=== PATIENT | male | born 1960 | race Two or more races ===

== ENCOUNTER 2025-04-17 16:30 | Emergency (ER) | payer MEDICARE, MEDICAID, SELFPAY ==
[2025-04-17 16:34] VITALS: BP 138/79; PULSE 84; RESP 20; TEMP 36.6; O2SAT 95
--- NOTE | 2025-04-17 16:57 | EDNOTE_ITS ---
ED Medical Clearance RME/HPI General Stated complaint: MEDICAL CLERANCE Time Seen by Provider: 04/17/25 16:37 Arrival date/time: 04/17/25 16:30 Limitations: no limitations RME / HPI RME / HPI Narrative: 64 year old male presents to the ED BIB [facility] for medical clearance for incarceration today. Per officer, patient is heavily intoxicated and requires clearance prior to booking. Officer denies forceful arrest. No head injury or fall. In the ED, patient has no complaints and admits to drinking alcohol. Amount of alcohol unknown. Related Information Home Medications ?Medication ?Instructions ?Recorded ?Confirmed clonazepam 1 mg tablet 1 mg PO HS 12/04/21 12/04/21 clotrimazole 1 % topical cream 1 applic topical BID 12/04/21 dicyclomine 20 mg tablet 20 mg PO BID 12/04/21 hydrocodone 5 mg-acetaminophen 325 1 tab PO Q6H PRN Pa in 12/04/21 12/04/21 mg tablet Held on 12/07/21. Instructions: Resume on 12/08/21. Resume Tuesday12/08/2021 methotrexate sodium 2.5 mg tablet 2.5 mg PO QWEEK 04/1912/04/21 pravastatin 20 mg tablet 20 mg PO HS 12/04/21 2 Previous Rx's ?Medication ?Instructions ?Recorded docusate sodium 100 mg capsule 100 mg PO BID #30 caps 01/15/20 (Colace) azathioprine 50 mg tablet (Imuran) 50 mg PO BID #60 ta bs 12/07/21 prednisone 5 mg tablet 5 mg PO BID #180 tabs sulfasalazine 500 mg tablet 1 g (2 x 500 mg) PO BID #1 20 tabs 12/07/21 Allergies Allergy/AdvReac Type Severity Reaction Status Date / Time No Known Allergies Allergy Verified 12/07/21 12:37 Review of Systems Review of Systems Systems Reviewed: All systems reviewed, normal except as documented Past Medical History Past Medical History CARDIAC: Positive Hypercholesterolemia (po meds) GASTROINTESTINAL: Positive Gastrointestinal Disorders (Gassy, constipation), Gall Bladder Disease (lap nilsa) and Gastroesophageal Reflux Disease MUSCULOSKELETAL: Positive Musculoskeletal Disorders and Arthritis (Generalized) ENT: Positive Cataracts Family History FAMILY HISTORY: Positive Family Cancer (Mother-Tumor stomach) Surgical History SURGICAL: Positive Tonsillectomy and Bowel Surgery Social History SMOKING STATUS: Never smoker ED Exam General Limitations: Present no limitations General appearance: Present alert Head Head exam: Present atraumatic, normocephalic and normal inspection Eye Eye exam: Present normal appearance, PERRL and EOMI ENT ENT exam: Present normal exam, normal oropharynx and mucous membranes moist Neck Neck exam: Present normal inspection, full ROM and trachea midline Chest Chest inspection: Present normal inspection and symmetric chest wall rise Respiratory Respiratory exam: Present normal lung sounds bilaterally Cardiovascular Cardiovascular exam: Present regular rate, normal rhythm and normal heart sounds Abdominal Exam Abdominal exam: Present soft; Absent distention, tenderness, guarding, rebound or rigidity Extremities Exam Extremities exam: Present normal inspection and full ROM Back Exam Back exam: Present normal inspection and full ROM Neurological Exam Neurological exam: Present alert, oriented X3 (GCS of 15 ), CN II-XII intact, normal gait and other (Moves all extremities ambulates without any difficulty); Absent motor sensory deficit Psychiatric Psychiatric exam: Present normal affect and normal mood Skin Skin exam: Present warm, dry, intact and normal color Course Quality Measures none Orders Category Date Time Status CBC Stat Lab 04/17/25 17:06 Completed Vital Signs Vital signs: Vital Signs Temperature 97.8 F 04/17/25 16:34 Pulse Rate 84 04/17/25 16:34 Respiratory Rate 20 04/17/25 16:34 Blood Pressure 138/79 H 04/17/25 16:34 Pulse Oximetry (%) 95 04/17/25 16:34 Oxygen Delivery Method Room Air 04/17/25 16:34 Pulse ox is 95% on room air which is adequate. Medical Clearance MDM Narrative MDM Narrative:: Allison Banegas am scribing for and in the presence of Dr. Lu. Patient is a 65-year-old male is in the emergency room with concerns for alcohol intoxication, requiring medical clearance prior to incarceration. But vital signs and exam as listed. Patient GCS 15, no focal neurodeficits, no signs of trauma, patient has no complaints. Ordered labs for medication for symptom relief. Patient not in active withdrawal. CIWA not elevated. Patient able to ambulate without any difficulties. Has not been vomiting. No chest pain no abdominal pain no difficulty breathing. Given patient exam patient is medically cleared for incarceration. Patient data External records reviewed:: [facility] previous records (I reviewed ED Visit on 07/19/2023 ) Clinical information provided by:: patient and law enforcement Social determinants that could affect healthcare access:: alcohol use Patient has the following chronic illnesses:: HLD? How is presenting disease/condition affected by chronic disease/condition?: uneffected by Evaluation data The following diagnostics were reviewed and interpreted by me:: lab results Lab and/or radiology exams considered but not ordered:: None Interpretation Summary: CBC unremarkable Medications / Prescriptions Medications or Prescriptions considered but not ordered:: None Medication administrations:: None Consultations Consultation(s) initiated? (list below): No Diagnosis Medical Clearance Differential Diagnosis: other (Alcohol intoxication, medical clearance for incarceration ) Most likely diagnosis given after review of the tests above:: Alcohol abuse Admission Indicated Admission indicated?: not indicated Admission Request Was there a request for admission?: No Disposition Plan Disposition Plan: Discharge Discharge Attestation Discharge Attestation: The patient and all family members were given an opportunity to ask questions and understood the discharge instructions. Discharge instructions specifically effects, indications for sooner follow up or return to the emergency department, and the expected course of current diagnosis. Patient condition: Stable Discharge Plan Plan Patient Disposition: Residential/Court/Law Prescriptions/Referrals Prescriptions/Med Rec: No Action hydrocodone-acetaminophen 5-325 mg tablet 1 tab PO Q6H PRN (Reason: Pain) Patient Comments: TAKE 1 TO 2 TABLET BY MOUTH EVERY 6 HOURS NEEDED FOR ACUTE PAIN FOR 30 DAYS clonazepam 1 mg tablet 1 mg PO HS Patient Comments: TAKE 1 TABLET BY MOUTH EVERY DAY methotrexate sodium 2.5 mg tablet 2.5 mg PO QWEEK Patient Comments: TAKE 5 TABLET BY MOUTH EVERY WEEK FOR 90 DAYS dicyclomine 20 mg tablet 20 mg PO BID Patient Comments: TAKE 1 TABLET BY MOUTH TWICE A DAY pravastatin 20 mg tablet 20 mg PO HS Patient Comments: URIEL MORENO TABLETA POR V A ORAL TODOS LOS D AL ACOSTARSE clotrimazole 1 % cream 1 applic TOPICAL BID Patient Comments: APPLY TO AFFECTED AREA TWICE A DAY FOR 28 DAYS sulfasalazine 500 mg Tablet 1 g PO BID Qty: 120 1RF Rx Instructions: 2 tablets twice daily with meals/snack azathioprine [Imuran] 50 mg Tablet 50 mg PO BID Qty: 60 1RF Rx Instructions: Take 1 table by mouth twice daily prednisone 5 mg Tablet 5 mg PO BID Qty: 180 0RF Taper: Prednisone Taper 20 mg DAILY for 2 Days and 0 Hour 10 mg DAILY for 2 Days and 0 Hour 5 mg DAILY for 7 Days and 0 Hour Rx Instructions: Take 3 tablets by mouth twice daily docusate sodium [Colace] 100 mg capsule 100 mg PO BID Qty: 30 0RF Referrals: No Primary/Family,Physician [Primary Care Provider] - In 1 week Problem List Clinical Impression: Alcohol abuse Patient/Caregiver Discharge Instructions Education Materials: Addiction: Getting Help Print Language: Georgian
[2025-04-17 17:25] LABS: Basophils # (Auto) 0.0 Thou/mm3 (0.0-0.2); Basophils % (Auto) 0 % (0-2.5); Eosinophils # (Auto) 0.1 Thou/mm3 (0.0-0.5); Eosinophils % (Auto) 1 % (0-10); Hematocrit 38.4 % (41.0-53.0); Hemoglobin 12.6 g/dL (13.5-16.0); Immature Granulocytes Auto 0.01 Thou/mm3 (0.00-0.00); Lymphocytes # (Auto) 4.5 Thou/mm3 (1.0-4.8); Lymphocytes % (Auto) 64 % (10-50); Mean Corpuscular HGB Conc 32.8 g/dl (31.0-37.0); Mean Corpuscular Hemoglobin 26.7 pg (25.0-35.0); Mean Corpuscular Volume 81 fL (80-100); Monocytes # (Auto) 0.4 Thou/mm3 (0.0-0.8); Monocytes % (Auto) 5 % (0-12); Neutrophils # (Auto) 2.2 Thou/mm3 (1.8-7.7); Neutrophils % (Auto) 30 % (37-80); Nucleated Red Blood Cell # 0.00 Thou/mm3 (0.00-0.00); Nucleated Red Blood Cell % 0 /100 WBC (0); Platelet Count 309 Thou/mm3 (140-440); RDW Standard Deviation 41.1 fL (35.1-43.9); Red Blood Count 4.72 Miln/mm3 (4.50-5.90); White Blood Count 7.1 Thou/mm3 (3.8-10.6)
== END 2025-04-17 18:14 ==
PROVIDERS: Emergency Provider Emergency Medicine
DX: Z02.89 Encounter for other administrative examinations (principal); F10.129 Alcohol abuse with intoxication, unspecified
CPT/HCPCS: 36415; 85025; 99282

== ENCOUNTER 2025-05-27 14:36 | Inpatient (IN) | payer MEDICARE, MEDICAID, SELFPAY ==
[2025-05-27 14:45] VITALS: BP 135/70; PULSE 110; RESP 20; TEMP 38.3; O2SAT 96
--- NOTE | 2025-05-27 14:48 | XR_ITS ---
Examination: PA lateral chest 2 views TECHNIQUE: Upright PA lateral chest 2 views Date and time: May 27, 2025, 1517 hours INDICATIONS: Coughing fever beginning 2 days ago. FINDINGS: Normal heart size. Moderate hyperexpansion. No pneumonia or pulmonary edema Moderate thoracic spondylosis IMPRESSION: Moderate hyperexpansion No pneumonia or pulmonary edema
--- NOTE | 2025-05-27 14:48 | PD.EDRME ---
Rapid Medical Screening Exam RME Arrival date/time: 05/27/25 14:36 65-year-old male with a history of alcohol abuse, GERD presents to the emergency room with a chief complaint of generalized weakness x 8 days. Patient states he has been drinking alcohol for the last 8 days and is feeling ill. I have greeted and performed a focused initial assessment of this patient. A comprehensive ED assessment and evaluation of the patient, analysis of all test results, and completion of the medical decision making process will be conducted by additional ED providers. Chief Complaint: General Adult/Misc Complain Time Seen by Provider: 05/27/25 14:45 Vital signs: Vital Signs Temperature 101.0 F H 05/27/25 14:45 Pulse Rate 110 H 05/27/25 14:45 Respiratory Rate 20 05/27/25 14:45 Blood Pressure 135/70 H 05/27/25 14:45 Pulse Oximetry (%) 96 05/27/25 14:45 Oxygen Delivery Method Room Air 05/27/25 14:45 Vital signs reviewed by provider: Yes
--- NOTE | 2025-05-27 15:13 | PD.EDADULT ---
ED General RME/HPI General Chief complaint: General Adult/Misc Complain Stated complaint: DRINKING X 8 DAYS, FEELS SHAKY Time Seen by Provider: 05/27/25 14:45 Arrival date/time: 05/27/25 14:36 RME / HPI RME / HPI narrative: 05/27/25 14:36 65-year-old male with a history of alcohol abuse, GERD presents to the emergency room with a chief complaint of generalized weakness x 8 days. Patient states he has been drinking alcohol for the last 8 days and is feeling ill. I have greeted and performed a focused initial assessment of this patient. A comprehensive ED assessment and evaluation of the patient, analysis of all test results, and completion of the medical decision making process will be conducted by additional ED providers. DR. ALCOCER MAIN ED EVALUATION 65 year old male presents to the ED for evaluation of fevers beginning this morning. Reports yesterday evening he took a shower with cold water and shortly after felt chills. Denies any sick contacts. Per son, the patient had been drinking daily for 8 days and prior to that had been sober for several months. Patient states in the last 8 days he at times drinks up to ten 32oz beers and today admits to only drinking two 32oz beers. Denies sick contacts, sore throat, chest pain, cough, shortness of breath, nausea, vomiting, diarrhea, abdominal pain, urinary symptoms. Related Data Home Medications ?Medication ?Instructions ?Recorded ?Confirmed clonazepam 1 mg tablet 1 mg PO HS 12/04/21 12/04/21 clotrimazole 1 % topical cream 1 applic topical BID 12/04/21 12/04/21 dicyclomine 20 mg tablet 20 mg PO BID 12/04/21 12/04/21 hydrocodone 5 mg-acetaminophen 325 1 tab PO Q6H PRN Pain 12/04/21 12/04/21 mg tablet Held on 12/07/21. Instructions: Resume on 12/08/21. Resume Tuesday12/08/2021 methotrexate sodium 2.5 mg tablet 2.5 mg PO QWEEK 12/04/21 12/04/21 pravastatin 20 mg tablet 20 mg PO HS 12/04/21 12/04/21 Previous Rx's ?Medication ?Instructions ?Recorded docusate sodium 100 mg capsule 100 mg PO BID #30 caps 01/15/20 (Colace) azathioprine 50 mg tablet (Imuran) 50 mg PO BID #60 tabs 12/07/21 prednisone 5 mg tablet 5 mg PO BID #180 tabs 12/07/21 sulfasalazine 500 mg tablet 1 g (2 x 500 mg) PO BID #120 tabs 12/07/21 Allergies Allergy/AdvReac Type Severity Reaction Status Date / Time No Known Allergies Allergy Verified 05/27/25 14:39 Review of Systems Review of Systems Systems Reviewed: All systems reviewed, normal except as documented Past Medical History Past Medical History CARDIAC: Positive Hypercholesterolemia GASTROINTESTINAL: Positive Gastrointestinal Disorders, Gall Bladder Disease and Gastroesophageal Reflux Disease MUSCULOSKELETAL: Positive Musculoskeletal Disorders and Arthritis ENT: Positive Cataracts Family History FAMILY HISTORY: Positive Family Cancer Surgical History SURGICAL: Positive Tonsillectomy and Bowel Surgery Social History SMOKING STATUS: Never smoker ED Exam Narrative Physical exam: Constitutional: Awake, alert, nontoxic, no acute distress, obese HEENT: NC, AT, EOMI Neck: Supple CV: Mildly tachycardic, no m/r/g Lungs: CTAB, no w/r/r, no respiratory distress. Abd: Soft, NT, NT, no HSM noted to palpation Extremities: No deformities, no edema noted Neuro: AAOx3, CN 2-12 GIBL, no acute neuro deficit noted. Skin: Warm, dry, intact Course Course Course Narrative: 1630h: I reviewed labs, lactate was 3.4 and WBC was 16. No obvious source of infection has been identified at this time with urine neg and CXR unremarkable with no other symptoms. Has received initial IVFs with additional fluids ordered and empiric antibiotics ordered as well. Blood cultures pending. Plan admit. 1720h: I spoke with hospitalist team A residents for admission - they will be down to see patient. Pts HR improved current after IVFs. BP stable at present. Quality Measures Current suspected stage: sepsis Possible source: unknown Blood cultures ordered: completed in ED Antibiotic ordered: Yes Pertinent labs: 05/27/25 05/27/25 14:57 16:00 Lactic Acid 3.4 H mMol/L (0.4-2.0) Procalcitonin 0.16 ng/ml (0.0-0.49) sepsis Orders Category Date Time Status Bedside COVID-19 Antigen Test NOW Care 05/27/25 14:48 Active Bedside Influenza A&B Antigen Test NOW Care 05/27/25 14:48 Active COVID-19 Screening Questionnaire NOW Care 05/27/25 17:28 Active Decision to Admit X1 Care 05/27/25 17:28 Active XR chest 2V Stat Exams 05/27/25 14:48 Completed Alcohol, Blood Medical Stat Lab 05/27/25 14:57 Completed Blood Culture (Lab) Stat Lab 05/27/25 15:13 Received C-Reactive Protein Stat Lab 05/27/25 14:57 Completed CBC Stat Lab 05/27/25 14:57 Completed CMP [Comprehensive Metabolic Panel] Stat Lab 05/27/25 14:57 Completed Drug Screen,Urine Stat Lab 05/27/25 15:07 Completed Lactate (Lactic Acid) Stat Lab 05/27/25 16:00 Results Procalcitonin Stat Lab 05/27/25 14:57 Completed UA, C/S IF [Urinalysis, C/S if Indicated] Stat Lab 05/27/25 15:07 Completed VBG [Venous Blood Gas] Stat Lab 05/27/25 16:00 Completed Acetaminophen Tab [Tylenol ES Tab] Med 05/27/25 15:04 Discontinued 1,000 mg PO X1 ONE Ringers Lactated 1000 ml [Lactated Ringers] 1,000 ml Med 05/27/25 15:26 Discontinued IV 999 mls/hr Ringers Lactated 1000 ml [Lactated Ringers] 1,000 ml Med 05/27/25 16:25 Discontinued IV 999 mls/hr cefTRIAXone/D5w 1gm IV premix [Rocephin/D5w 1gm IV Med 05/27/25 16:27 Discontinued premix] 1 gm in 50 ml IV X1 Vital Signs Vital signs: Vital Signs Temperature 101.0 F H 05/27/25 14:45 Pulse Rate 110 H 05/27/25 14:45 Respiratory Rate 20 05/27/25 14:45 Blood Pressure 135/70 H 05/27/25 14:45 Pulse Oximetry (%) 96 05/27/25 14:45 Oxygen Delivery Method Room Air 05/27/25 14:45 Pulse ox is 96% on room air which is adequate. Critical Care Time Critical Care Time Critical Care Time: No Discharge Plan Plan Patient Disposition: Admit Acute Care w/in Hospital Prescriptions/Referrals Prescriptions/Med Rec: No Action hydrocodone-acetaminophen 5-325 mg tablet 1 tab PO Q6H PRN (Reason: Pain) Patient Comments: TAKE 1 TO 2 TABLET BY MOUTH EVERY 6 HOURS NEEDED FOR ACUTE PAIN FOR 30 DAYS clonazepam 1 mg tablet 1 mg PO HS Patient Comments: TAKE 1 TABLET BY MOUTH EVERY DAY methotrexate sodium 2.5 mg tablet 2.5 mg PO QWEEK Patient Comments: TAKE 5 TABLET BY MOUTH EVERY WEEK FOR 90 DAYS dicyclomine 20 mg tablet 20 mg PO BID Patient Comments: TAKE 1 TABLET BY MOUTH TWICE A DAY pravastatin 20 mg tablet 20 mg PO HS Patient Comments: TOME JOSH TABLETA POR V A ORAL TODOS LOS D AL ACOSTARSE clotrimazole 1 % cream 1 applic TOPICAL BID Patient Comments: APPLY TO AFFECTED AREA TWICE A DAY FOR 28 DAYS sulfasalazine 500 mg Tablet 1 g PO BID Qty: 120 1RF Rx Instructions: 2 tablets twice daily with meals/snack azathioprine [Imuran] 50 mg Tablet 50 mg PO BID Qty: 60 1RF Rx Instructions: Take 1 table by mouth twice daily prednisone 5 mg Tablet 5 mg PO BID Qty: 180 0RF Taper: Prednisone Taper 20 mg DAILY for 2 Days and 0 Hour 10 mg DAILY for 2 Days and 0 Hour 5 mg DAILY for 7 Days and 0 Hour Rx Instructions: Take 3 tablets by mouth twice daily docusate sodium [Colace] 100 mg capsule 100 mg PO BID Qty: 30 0RF Referrals: Billy Domínguez PA-C [Primary Care Provider] - In 1 week Problem List Clinical Impression: Sepsis, Elevated lactic acid level, Alcohol abuse Patient/Caregiver Discharge Instructions Print Language: Gambian Stand Alone Forms: [employer] Award Info., Patient Portal Info Letter MDM Narrative MDM hospital course (for use when minimal MDM required): Allison Banegas am scribing for and in the presence of Dr. Alcocer. Clinical Information Provided by: patient and family (son ) Medical Records reviewed [facility] Meds/Rx considered, not ordered None Labs/Rad/Tests considered, not ordered None Chronic Illness/Social Conditions which may negatively complicate care or outcome(s)-explain: ETOH/drugs/substance abuse EKG EKG not done Labs Labs: see narrative above Imaging Imaging Interpretation(s): Ordering Physician: Amaury Huston Date of Service: 05/27/25 Procedure(s): XR chest 2V Accession Number(s): [id number] cc: Amaury Huston; Germán Jordan MD; NO PRIMARY/FAMILY,PHYSICIAN~ Examination: PA lateral chest 2 views TECHNIQUE: Upright PA lateral chest 2 views Date and time: May 27, 2025, 1517 hours INDICATIONS: Coughing fever beginning 2 days ago. FINDINGS: Normal heart size. Moderate hyperexpansion. No pneumonia or pulmonary edema Moderate thoracic spondylosis IMPRESSION: Moderate hyperexpansion No pneumonia or pulmonary edema Dictated By: Germán Jordan MD Signed By: <Electronically signed by Germán Jordan MD in OV> 05/27/25 1535 Medication Administration(s) Medication Administration History Discontinued Medications Acetaminophen (Acetaminophen 500 Mg Tablet) 1,000 mg PO X1 ONE Stop: 05/27/25 15:05 Last Admin: 05/27/25 15:19 Dose: 1,000 mg Documented By: EF Lactated Ringer's (Lactated Ringers) 1,000 mls @ 999 mls/hr IV .Q1H1M ONE Stop: 05/27/25 16:26 Last Infusion: 05/27/25 16:47 Dose: Infused Documented By: Admin: 05/27/25 15:45 Dose: 999 mls/hr Documented By: EF Lactated Ringer's (Lactated Ringers) 1,000 mls @ 999 mls/hr IV .Q1H1M ONE Stop: 05/27/25 17:25 Last Admin: 05/27/25 16:33 Dose: 999 mls/hr Documented By: EF Ceftriaxone Sodium/Dextrose (Rocephin/D5w 1gm Iv Premix) 1 gm in 50 mls @ 100 mls/hr IV X1 ONE Stop: 05/27/25 16:56 Last Infusion: 05/27/25 17:03 Dose: Infused Documented By: Admin: 05/27/25 16:33 Dose: 100 mls/hr Documented By: EF See above Diagnosis Diagnoses ruled out and/or further discussions: sepsis, unknown source alcohol abuse elevated lactate
[2025-05-27 15:14] LABS: Basophils # (Auto) 0.0 Thou/mm3 (0.0-0.2); Basophils % (Auto) 0 % (0-2.5); Eosinophils # (Auto) 0.0 Thou/mm3 (0.0-0.5); Eosinophils % (Auto) 0 % (0-10); Hematocrit 38.6 % (41.0-53.0); Hemoglobin 13.1 g/dL (13.5-16.0); Immature Granulocytes Auto 0.05 Thou/mm3 (0.00-0.00); Lymphocytes # (Auto) 1.3 Thou/mm3 (1.0-4.8); Lymphocytes % (Auto) 8 % (10-50); Mean Corpuscular HGB Conc 33.9 g/dl (31.0-37.0); Mean Corpuscular Hemoglobin 27.5 pg (25.0-35.0); Mean Corpuscular Volume 81 fL (80-100); Monocytes # (Auto) 0.7 Thou/mm3 (0.0-0.8); Monocytes % (Auto) 4 % (0-12); Neutrophils # (Auto) 14.6 Thou/mm3 (1.8-7.7); Neutrophils % (Auto) 87 % (37-80); Nucleated Red Blood Cell # 0.00 Thou/mm3 (0.00-0.00); Nucleated Red Blood Cell % 0 /100 WBC (0); Platelet Count 288 Thou/mm3 (140-440); RDW Standard Deviation 39.9 fL (35.1-43.9); Red Blood Count 4.77 Miln/mm3 (4.50-5.90); White Blood Count 16.7 Thou/mm3 (3.8-10.6)
[2025-05-27 15:19] VITALS: TEMP 38.3
[2025-05-27] MEDS: ACETAMINOPHEN 500 MG TABLET 1000 MG PO (15:19)
[2025-05-27 15:22] LABS: Collection Type, Urine Clean Catch
[2025-05-27 15:29] LABS: Alanine Aminotransferase 14 U/L (10-49); Albumin, Serum 4.1 gm/dL (3.4-4.8); Albumin/Globulin Ratio 1.3 (1.2-2.2); Alcohol, Blood Medical 101.3 mg/dL (0-10.0); Alkaline Phosphatase 72 U/L (46-116); Anion Gap 12 (7-16); Aspartate Amino Transferase 28 U/L (0-34); BUN/Creatinine Ratio 6 Ratio (12-20); Bilirubin,Total 0.7 mg/dL (0.3-1.2); Blood Urea Nitrogen < 5 mg/dL (9-23); Calcium 9.1 mg/dL (8.3-10.6); Calcium (Corrected) 9.1 mg/dL (8.5-10.1); Carbon Dioxide 19.9 mMol/L (20.0-31.0); Chloride 101 mMol/L (98-107); Creatinine (Component) 0.9 mg/dL (0.6-1.3); Globulin 3.1 gm/dL (2.3-3.5); Glucose 98 mg/dL (74-106); Osmolality,Calculated 263 (275-295); Potassium 3.9 mMol/L (3.4-5.1); Sodium 133 mMol/L (136-145); Total Protein 7.2 gm/dL (5.7-8.2); eGFR > 60 See Note
[2025-05-27 15:34] LABS: Amphetamine/Methamp Scrn,U Negative (Negative); Barbiturate Screen,Urine Negative (Negative); Benzodiazepines Screen,Urine Negative (Negative); Benzoylecgonine Screen, Ur Negative (Negative); Fentanyl Screen,Urine Negative (Negative); Opiate Screen,Urine Negative (Negative); THC Screen,Urine Negative (Negative)
[2025-05-27 15:45] LABS: Bilirubin,Urine Negative (Negative); Blood,Urine Trace (Negative); Clarity,Urine Clear (Clear/Hazy); Color,Urine Lt-Yellow (Lt Yel-Yel); Culture Indicated,Urine Not Indicated; Glucose, Urine Negative (Negative); Ketones,Urine Negative (Negative); Leukocyte Esterase,Urine Negative (Negative); Nitrite,Urine Negative (Negative); PH,Urine 6.5 (5.0-7.0); Protein,Urine Negative (Neg - Trace); RBC,Urine 2 /hpf (0-3); Specific Gravity,Urine 1.010 (1.001-1.035); Squamous Epithelial Cell,Urine < 1 /hpf (0-5); Urobilinogen,Urine Negative mg/dL (0.0-1.0); WBC,Urine < 1 /hpf (0-5)
[2025-05-27] MEDS: RINGERS LACTATED 1000 ML 1,000 ML 999 ML IV ×2 (15:45→16:33)
[2025-05-27 16:01] LABS: C-Reactive Protein < 0.5 mg/dL (0.0-0.9); Procalcitonin 0.16 ng/ml (0.0-0.49)
[2025-05-27 16:13] LABS: Lactate (Lactic Acid) 3.4 mMol/L (0.4-2.0)
[2025-05-27 16:14] VITALS: BP 125/59; PULSE 96; RESP 14; TEMP 37.7; O2SAT 98
[2025-05-27 16:19] VITALS: TEMP 37.7
[2025-05-27] MEDS: cefTRIAXone/D5w 1gm IV premix 1 GM/50 ML BAG IV (16:33)
[2025-05-27 16:46] LABS: Base Excess, Venous -2 (-3-3); O2 Saturation, Venous 97 % (96-97); PCO2, Venous 26 mmHg (36-56); PO2, Venous 102 mmHg (15-58); pH, Venous 7.50 (7.33-7.66)
--- NOTE | 2025-05-27 18:13 | PC.NURSE ---
Patient deciding to leave AMA stating hes tired of being in the hospital. I spoke with the patient and encouraged him to stay. patient stated he wants to leave. i encouraged patient to return if he changes his mind or any worsening symptoms. i informed patient about dangers of leaving that could lead to worsening symptoms and even .
--- NOTE | 2025-05-27 18:19 | PD.HHHP ---
Documentation for date of: 05/27/25 HPI - Hospitalist History of Present Illness History of present illness: Patient Meds Home Medications and Allergies Home Medications ?Medication ?Instructions ?Recorded ?Confirmed ?Type clonazepam 1 mg tablet 1 mg PO HS 12/04/21 12/04/21 History clotrimazole 1 % topical cream 1 applic topical BID 12/04/21 12/04/21 History dicyclomine 20 mg tablet 20 mg PO BID 12/04/21 12/04/21 History hydrocodone 5 mg-acetaminophen 325 1 tab PO Q6H PRN Pain 12/04/21 12/04/21 History mg tablet Held on 12/07/21. Instructions: Resume on 12/08/21. Resume Tuesday12/08/2021 methotrexate sodium 2.5 mg tablet 2.5 mg PO QWEEK 12/04/21 12/04/21 History pravastatin 20 mg tablet 20 mg PO HS 12/04/21 12/04/21 History Allergies Allergy/AdvReac Type Severity Reaction Status Date / Time No Known Allergies Allergy Verified 05/27/25 14:39 Exam Vital Signs Temp Pulse Resp BP Pulse Ox O2 Del Method 99.8 F 96 14 125/59 L 98 Room Air 05/27/25 16:19 05/27/25 16:14 05/27/25 16:14 05/27/25 16:14 05/27/25 16:14 05/27/25 16:14 Results - Hospitalist Labs Diagrams: 05/27/25 14:57 05/27/25 14:57 Labs: Short CBC 05/27/25 Range/Units 14:57 WBC 16.7 H (3.8-10.6) Thou/mm3 Hgb 13.1 L (13.5-16.0) g/dL Hct 38.6 L (41.0-53.0) % Plt Count 288 (140-440) Thou/mm3 BMP 05/27/25 14:57 Sodium 133 L Potassium 3.9 Chloride 101 Carbon Dioxide 19.9 L BUN < 5 L Creatinine 0.9 Glucose 98 Calcium 9.1 Liver Function 05/27/25 Range/Units 14:57 Total Bilirubin 0.7 (0.3-1.2) mg/dL AST 28 (0-34) U/L ALT 14 (10-49) U/L Alkaline Phosphatase 72 (46-116) U/L Albumin 4.1 (3.4-4.8) gm/dL Urine 05/27/25 Range/Units 15:07 Urine Color Lt-Yellow (Lt Yel-Yel) Urine Clarity Clear (Clear/Hazy) Urine pH 6.5 (5.0-7.0) Ur Specific [place] 1.010 (1.001-1.035) Urine Protein Negative (Neg - Trace) Urine Glucose (UA) Negative (Negative) ABG Interpretation ABG results: 05/27/25 16:00 VBG pH 7.50 VBG pCO2 26 L VBG pO2 102 H VBG Base Excess -2 Quality Measures Quality Measures sepsis Possible source: unknown Blood cultures ordered: completed in ED
--- NOTE | 2025-05-27 18:21 | EVENTNT_ITS ---
Documentation for date of: 05/27/25 Event Note Event Note: Patient is a 65-year-old male with past medical history of ulcerative colitis, rheumatoid arthritis and anxiety who presented to the ED due to fevers and chills. Patient reported that he had been in the shower this morning and came around feeling very weak and tremulous. He was noted to have a high fever per son at bedside. Patient had otherwise been feeling well prior to this episode. He had also drunken two 32 ounce beers in the morning. Due to concern for his fever, patient came to the ED. He was found to have a leukocytosis of 16.7, bicarb of 19.9, lactic acid of 3.4. Patient was tachycardic and was noted to h ave a temperature of 101 on presentation, but resolved with Tylenol. He was also given Rocephin and 2 L boluses of lactated Ringer's. Urinalysis was negative and chest x-ray also shows no evidence of pneumonia. Patient denies any nausea, vomiting, cough, productive sputum, rashes, joint pain, diarrhea, dysuria, increased urinary frequency, flank pain, abdominal pain. He denied any sick contacts. Hospitalist service was called for admission due to concern for sepsis/ fever of unknown origin. On physical exam: Gen: No acute distress, mild tremors noted on extension of b/l hands HEENT: NCAT, PERRLOU, Sclera anicteric, conjunctiva noninjected, oral mucosa moist without erythema Neck: Supple, full range of motion, no LAD CV: RRR GI: abdomen soft, protuberant, bowel sounds noted, no tenderness to palpation, no guarding or rebound tenderness, no organomegaly, no CVA tenderness Skin: clean, dry, no rashes, lesions or ecchymosis Ext: b/l knee swelling, L>R, but no erythema or tenderness to palpation. b/l pedal pulses are intact. No erythema, open wounds or rashes over b/l feet. Neuro: A&O x3, CN II- XII intact b/l, no focal neurological deficits Findings of labs and imaging were discussed with patient and son at bedside. Patient stated that he was bored and wanted to go home. He also stated that he was feeling much better and had no complaints. Upon discussion of admission to further investigate source of infection and to continue with IV antibiotics and IV fluid hydration, patient stated that he wanted to go home. He also stated that he needed to go to [place] to continue with his arthritis treatments. Discussed the risks of leaving AGAINST MEDICAL ADVICE including, but not limited to, overwhelming sepsis, permanent disability or sudden cardiac . Patient and son verbalized understanding and stated that they would like to continue with the decision of returning home AGAINST MEDICAL ADVICE.
--- NOTE | 2025-05-27 18:25 | PC.NURSE ---
spoke with dr rojas about patient changing his mind and wanting to stay. dr rojas stated she will send her team down to talk with patient
[2025-05-27 18:59] VITALS: BP 121/64; PULSE 79; RESP 18; TEMP 36.6; O2SAT 96
[2025-05-27 19:09] LABS: Reflex Lactate? Y
[2025-05-27 20:08] LABS: Lactic Acid, 3 HR 2.3 mMol/L (0.4-2.0)
--- NOTE | 2025-05-27 20:17 | PD.RESHP ---
Documentation for date of: 05/27/25 [facility] History of Present Illness History of present illness: Patient is a 65-year-old male past medical significant for ulcerative colitis and rheumatoid arthritis presented to the ED on 05/27/2025 with chief complaint of fever and chills. Patient was supposed admitted during dayshift however patient left against AMA return to ED after son spoke to him. He reported during the day while he was taking shower suddenly had chills, generalized weakness and body felt warm. Per son at bedside he had no vomiting at home so he could not measure his temperature. Patient son also stated that for the past few days patient has been feeling warm. Prior to admission patient drank about 2 ounce of [place]. Per son at bedside patient has been sober for 1 month however for the past 8 days has been drinking nonstop. Patient reports prior episode of alcohol withdrawal in the past. He denies headache, lightheadedness, generalized weakness, visual and auditory elucidation, sensitivity to light. Also denies nausea, bloody emesis, cough, diarrhea, constipation, melena, increased urinary frequency and recent sick contact. ED Course: -Initial vitals were BP 135/70, pulse 110, respiratory 20, temp 101, O2 sat 96% on room air -Labs significant for WBC 16.7, hemoglobin 13.1, hematocrit 38.6, sodium 133, lactic acid 3.4. - UA negative for UTI. UTOX negative. Alcohol level 101.3 - Imaging included chest showing no pulmonary edema or pneumonia -In the ED, patient was given Tylenol and, 2 L LR, ceftriaxone -Patient was admitted for fever alcohol withdrawal evaluation and management Review of Systems Review of systems otherwise negative except what is mentioned above. Past Medical History: Mentioned above Family History: Noncontributory Surgical History: Cholecystectomy, hemorrhoid removal Social History: Denies history of smoking and recreational drug use. History of drinking for 30 years. with 6 kids. Current Medications: Patient reports bimonthly IV infusions in [place] for rheumatoid arthritis (does not recall the name) Allergies: No known drug allergies Exam Vital Signs Temp Pulse Resp BP Pulse Ox O2 Del Method 97.9 F 79 18 121/64 96 Room Air 05/27/25 18:59 05/27/25 18:59 05/27/25 18:59 05/27/25 18:59 05/27/25 18:59 05/27/25 18:59 Narrative Exam General: Alert, no acute distress.Conversational and non-toxic appearing. Skin: Warm, dry, intact. No rash or ecchymoses. Head: Normocephalic, atraumatic. Eye: Normal conjunctiva, PERRL. Throat: Oral mucosa moist. No obvious lesions in oropharynx. Cardiovascular: Regular rate and rhythm, no murmur, +S1/S2. Respiratory: Lungs are clear to auscultation, respirations unlabored, no crackles, no wheezing. Gastrointestinal: Soft, nontender, non-distended. No guarding or rebound tenderness. Extremities: No edema, no cyanosis, no clubbing. Neuro: Alert and oriented x3.No focal deficits observed. Conversant, moving all extremities. No overt cerebellar signs/incoordination. Psychiatric: Cooperative, appropriate affect Results: Labs 05/27/25 14:57 05/27/25 14:57 Labs: Short CBC 05/27/25 Range/Units 14:57 WBC 16.7 H (3.8-10.6) Thou/mm3 Hgb 13.1 L (13.5-16.0) g/dL Hct 38.6 L (41.0-53.0) % Plt Count 288 (140-440) Thou/mm3 BMP 05/27/25 14:57 Sodium 133 L Potassium 3.9 Chloride 101 Carbon Dioxide 19.9 L BUN < 5 L Creatinine 0.9 Glucose 98 Calcium 9.1 Liver Function 05/27/25 Range/Units 14:57 Total Bilirubin 0.7 (0.3-1.2) mg/dL AST 28 (0-34) U/L ALT 14 (10-49) U/L Alkaline Phosphatase 72 (46-116) U/L Albumin 4.1 (3.4-4.8) gm/dL Urine 05/27/25 Range/Units 15:07 Urine Color Lt-Yellow (Lt Yel-Yel) Urine Clarity Clear (Clear/Hazy) Urine pH 6.5 (5.0-7.0) Ur Specific [place] 1.010 (1.001-1.035) Urine Protein Negative (Neg - Trace) Urine Glucose (UA) Negative (Negative) ABG Interpretation ABG results: 05/27/25 16:00 VBG pH 7.50 VBG pCO2 26 L VBG pO2 102 H VBG Base Excess -2 Quality Measures Quality Measures VTE prophylaxis Advance care planning discussed with:: patient and child Medications Home Medications and Allergies Home Medications ?Medication ?Instructions ?Recorded ?Confirmed ?Type clonazepam 1 mg tablet 1 mg PO HS 12/04/21 05/27/25 History clotrimazole 1 % topical cream 1 applic topical BID 12/04/21 05/27/25 History mesalamine 1.2 gram tablet,delayed 2.4 g PO DAILY 05/27/25 05/27/25 History release Allergies Allergy/AdvReac Type Severity Reaction Status Date / Time No Known Allergies Allergy Verified 05/27/25 14:39 Visit Medications Clonazepam (Clonazepam 0.5 Mg Tablet) 1 mg PO X1 ONE Stop: 05/27/25 20:16 Diazepam (Diazepam Inj 5 Mg/Ml Vial 2 Ml) 2.5 mg IVP Q2HR PRN PRN Reason: CIWA SCORE 8-13 Stop: 06/01/25 20:09 Diazepam (Diazepam Inj 5 Mg/Ml Vial 2 Ml) 5 mg IVP Q2HR PRN PRN Reason: CIWA SCORE 14-19 Stop: 06/01/25 20:09 Diazepam (Diazepam Inj 5 Mg/Ml Vial 2 Ml) 10 mg IVP Q2HR PRN PRN Reason: CIWA SCORE 20-25 Stop: 06/01/25 20:09 Lactated Ringer's (Lactated Ringers) 1,000 mls @ 100 mls/hr IV .Q10H BENNETT Stop: 05/28/25 06:14 Lorazepam (Lorazepam 0.5 Mg Tablet) 1 mg PO Q4HR PRN PRN Reason: CIWA SCORE 7-11 Stop: 06/01/25 20:09 Pantoprazole Sodium (Pantoprazole Inj 40 Mg Vial) 40 mg IVP QDAY BENNETT Stop: 06/26/25 20:39 Discontinued Medications Acetaminophen (Acetaminophen 500 Mg Tablet) 1,000 mg PO X1 ONE Stop: 05/27/25 15:05 Last Admin: 05/27/25 15:19 Dose: 1,000 mg Lactated Ringer's (Lactated Ringers) 1,000 mls @ 999 mls/hr IV .Q1H1M ONE Stop: 05/27/25 16:26 Last Infusion: 05/27/25 16:47 Dose: Infused Lactated Ringer's (Lactated Ringers) 1,000 mls @ 999 mls/hr IV .Q1H1M ONE Stop: 05/27/25 17:25 Last Infusion: 05/27/25 17:34 Dose: Infused Ceftriaxone Sodium/Dextrose (Rocephin/D5w 1gm Iv Premix) 1 gm in 50 mls @ 100 mls/hr IV X1 ONE Stop: 05/27/25 16:56 Last Infusion: 05/27/25 17:03 Dose: Infused Assessment & Plan Plan Patient is a 65-year-old male past medical significant for ulcerative colitis and rheumatoid arthritis presented to the ED on 05/27/2025 with chief complaint of fever and chills. Admitted for evaluation of fever and alcohol withdrawal management #Alcohol withdrawal #Alcohol use dependence Patient history of chronic alcohol use. Presented with fever, tremors generalized weakness. Last alcohol intake of 32 ounce of beer this morning. Upon evaluation CIWA was 9. - CIWA protocol - Monitor for alcohol withdrawal - Started 1 L LR at 100 cc/h - Started vitamin B1 100 mg - Started Zofran as needed #Lactic acidosis---Resolved #Rheumatoid arthritis Presented with fever of 101, pulse 110 and WBS 16.7 and lactic acid 3.4. Patient meeting SIRS criteria 3/4 and moderate sepsis. Sepsis protocol was triggered Patient received 2 L LR in the ED.Patient has no source of infection, no ulcers, wounds, cough, recent sick contact. Concern for leukocytosis secondary to steroids use, however patient denies steroid use and reports going to [place] every 2 months for IV infusion - Pain management for rheumatoid Tritus - Started 1 L LR at 100 cc/h -Lactate trended down -Blood culture, pending -Urine culture, #Ulcerative colitis On home medication mesalamine 1.2 gram - Continue home meds Hospital management: Lines: peripheral IV Diet: Regular GI prophylaxis: pantoprazole DVT prophylaxis: SCDs Disposition: Med/tele for sepsis and alcohol withdrawal management CODE STATUS: Full code Patient seen and assessed under supervision of attending physician Dr.Alhalaibeh Liz Jung MD PGY-1, Internal Medicine Please note: this document was transcribed using voice recognition technology; minor inaccuracies may be present. . Attending Provider Attestation/Addendum After examination of the patient and review of the clinical data I feel that this patient needs admission to the hospital for further treatment/evaluation. Plan of care discussed with patient and is in agreement. I Galo Carter MD, attest that I was physically present for acuna portions of evaluation, and examined patient, labs and imagings and plan of care were discussed with IM residents team, and I agree with the findings and plans documented above.
[2025-05-27] MEDS: RINGERS LACTATED 1000 ML 1,000 ML 100 ML IV (21:04)
[2025-05-27 21:10] VITALS: BP 106/60; PULSE 71; RESP 18; TEMP 37.2; O2SAT 96
[2025-05-27 21:54] VITALS: BMI 29.7
[2025-05-28] VITALS (7 sets, daily range): BP systolic 115–143; BP diastolic 64–83; PULSE 55–87; RESP 17–20; TEMP 36.2–36.9; O2SAT 97
[2025-05-28 05:46] LABS: Basophils # (Auto) 0.1 Thou/mm3 (0.0-0.2); Basophils % (Auto) 0 % (0-2.5); Eosinophils # (Auto) 0.1 Thou/mm3 (0.0-0.5); Eosinophils % (Auto) 0 % (0-10); Hematocrit 34.6 % (41.0-53.0); Hemoglobin 11.3 g/dL (13.5-16.0); Immature Granulocytes Auto 0.08 Thou/mm3 (0.00-0.00); Lymphocytes # (Auto) 3.8 Thou/mm3 (1.0-4.8); Lymphocytes % (Auto) 20 % (10-50); Mean Corpuscular HGB Conc 32.7 g/dl (31.0-37.0); Mean Corpuscular Hemoglobin 27.0 pg (25.0-35.0); Mean Corpuscular Volume 83 fL (80-100); Monocytes # (Auto) 1.6 Thou/mm3 (0.0-0.8); Monocytes % (Auto) 8 % (0-12); Neutrophils # (Auto) 13.7 Thou/mm3 (1.8-7.7); Neutrophils % (Auto) 71 % (37-80); Nucleated Red Blood Cell # 0.00 Thou/mm3 (0.00-0.00); Nucleated Red Blood Cell % 0 /100 WBC (0); Platelet Count 258 Thou/mm3 (140-440); RDW Standard Deviation 42.3 fL (35.1-43.9); Red Blood Count 4.18 Miln/mm3 (4.50-5.90); White Blood Count 19.3 Thou/mm3 (3.8-10.6)
[2025-05-28 06:22] LABS: Alanine Aminotransferase 10 U/L (10-49); Albumin, Serum 3.4 gm/dL (3.4-4.8); Albumin/Globulin Ratio 1.3 (1.2-2.2); Alkaline Phosphatase 57 U/L (46-116); Anion Gap 9 (7-16); Aspartate Amino Transferase 22 U/L (0-34); BUN/Creatinine Ratio 8 Ratio (12-20); Bilirubin,Total 0.8 mg/dL (0.3-1.2); Blood Urea Nitrogen 6 mg/dL (9-23); Calcium 9.0 mg/dL (8.3-10.6); Calcium (Corrected) 9.5 mg/dL (8.5-10.1); Carbon Dioxide 23.6 mMol/L (20.0-31.0); Chloride 106 mMol/L (98-107); Creatinine (Component) 0.8 mg/dL (0.6-1.3); Estimated Creatinine Clearance 94.0 mL/min (>60); Globulin 2.6 gm/dL (2.3-3.5); Glucose 104 mg/dL (74-106); Magnesium 1.8 mg/dL (1.6-2.6); Osmolality,Calculated 275 (275-295); Phosphorous 2.5 mg/dL (2.4-5.1); Potassium 4.1 mMol/L (3.4-5.1); Sodium 139 mMol/L (136-145); Total Protein 6.0 gm/dL (5.7-8.2); eGFR > 60 See Note
--- NOTE | 2025-05-28 07:42 | ESPR_ITS ---
<Statement entered by Brandie Le MD - 05/28/25 16:50> Patient seen and examined at bedside. Patient denies any complaints at this time. He has remained afebrile since admission. Vitals are stable, leukocytosis worsening to 19, lactic acidosis resolved, urine culture is pending. At this time, possible source of infection is unknown. CT a/p Perinephric stranding, consider urinary tract infection, no CT findings of appendicitis or bowel obstruction, mild nonspecific colitis pattern involving sigmoid colon. He is eager to leave but counseled on benefit of staying. Continue IV ceftriaxone 1g daily. The patient's management plan was discussed with my attending physician Dr. Monreal. Brandie Le, PGY-2 <Statement entered by Katherine Murry MD - 05/28/25 16:01> Patient seen and examined at bedside. Patient denies any complaints at this time. Patient is very eager to go home however after an extensive discussion with his care team, patient agreed to stay. Pending blood and urine cultures to rule out infection. Will continue with IV ceftriaxone, has been afebrile since admission. I discussed with and supervised the campus recruiting intern physician who took care of this patient. I personally saw and examined the patient and discussed the assessment and plan with the entire medicine team, including my attending Dr. Monreal, I agree with most of the assessment and plan as documented below Katherine Murry M.D. PGY-3 Disclaimer: Despite multiple revisions, due to the dictation software being used, the document bellow may not be free of grammatical errors including phonetic/typographic errors. However, this does not deter from our commitment to providing health care in the patient's best interest in mind. Documentation for date of: 05/28/25 Subjective Subjective Interval history: Patient is a 65-year-old male past medical significant for ulcerative colitis and rheumatoid arthritis presented to the ED on 05/27/2025 with chief complaint of fever and chills. Admitted for evaluation of fever of unknown origin. 05/28/2025: Patient seen and examined at bedside, he reports feeling fine and a desire to go home. pts nurse was able to explain that we are pending cultures and that his wbc is uptrending and we want to rule out possible infection, pt amenable to staying, continues with ceftriaxone and remains afebrile. Exam Vital Signs Temp Pulse Resp BP Pulse Ox O2 Del Method 97.4 F 64 20 116/64 97 Room Air 05/28/25 04:00 05/28/25 04:00 05/28/25 04:00 05/28/25 04:00 05/28/25 04:00 05/28/25 04:00 Narrative Exam General: Alert, no acute distress.Conversational and non-toxic appearing. Skin: Warm, dry, intact. No rash or ecchymoses. Head: Normocephalic, atraumatic. Eye: Normal conjunctiva, PERRL. Throat: Oral mucosa moist. No obvious lesions in oropharynx. Cardiovascular: Regular rate and rhythm, no murmur, +S1/S2. Respiratory: Lungs are clear to auscultation, respirations unlabored, no crackles, no wheezing. Gastrointestinal: Soft, nontender, non-distended. No guarding or rebound tenderness. Extremities: No edema, no cyanosis, no clubbing. Neuro: Alert and oriented x3.No focal deficits observed. Conversant, moving all extremities. No overt cerebellar signs/incoordination. Psychiatric: Cooperative, appropriate affect Objective Labs 05/29/25 05:10 05/29/25 05:10 Labs: Laboratory Results - last 24 hr 05/27/25 05/27/25 05/27/25 14:57 15:07 16:00 WBC 16.7 H RBC 4.77 Hgb 13.1 L Hct 38.6 L MCV 81 MCH 27.5 MCHC 33.9 RDW Std Deviation 39.9 Plt Count 288 Neut % (Auto) 87 H Lymph % (Auto) 8 L Maries % (Auto) 4 Eos % (Auto) 0 Baso % (Auto) 0 Neut # (Auto) 14.6 H Lymph # (Auto) 1.3 Maries # (Auto) 0.7 Eos # (Auto) 0.0 Baso # (Auto) 0.0 Immature Gran # (Auto) 0.05 H Absolute Nucleated RBC 0.00 Immature Gran % 0 Nucleated RBC % 0 VBG pH 7.50 VBG pCO2 26 L VBG pO2 102 H VBG O2 Sat (Mainor) 97 VBG Base Excess -2 Sodium 133 L Potassium 3.9 Chloride 101 Carbon Dioxide 19.9 L Anion Gap 12 BUN < 5 L Creatinine 0.9 Estim Creat Clear Calc Not Performed. eGFR > 60 BUN/Creatinine Ratio 6 L Glucose 98 Calculated Osmolality 263 L Lactic Acid 3.4 H Calcium 9.1 Corrected Calcium 9.1 Phosphorus Magnesium Total Bilirubin 0.7 AST 28 ALT 14 Alkaline Phosphatase 72 C-Reactive Prot, Quant < 0.5 Total Protein 7.2 Albumin 4.1 Globulin 3.1 Albumin/Globulin Ratio 1.3 Procalcitonin 0.16 Ur Collection Type Clean Catch Urine Color Lt-Yellow Urine Clarity Clear Urine pH 6.5 Ur Specific [place] 1.010 Urine Protein Negative Urine Glucose (UA) Negative Urine Ketones Negative Urine Blood Trace Urine Nitrite Negative Urine Bilirubin Negative Urine Urobilinogen (Auto) Negative Ur Leukocyte Esterase Negative Urine RBC 2 Urine WBC < 1 Ur Squamous Epith Cells < 1 Urine Bacteria None Ur Culture Indicated? Not Indicated Urine Opiates Screen Negative Urine Fentanyl Screen Negative Ur Barbiturates Screen Negative U Amphetamin/Meth Scrn Negative U Benzodiazepines Scrn Negative U Cocaine Metab Screen Negative U Marijuana (THC) Screen Negative Ethyl Alcohol 101.3 H 05/27/25 05/28/25 19:33 05:09 WBC 19.3 H RBC 4.18 L Hgb 11.3 L Hct 34.6 L MCV 83 MCH 27.0 MCHC 32.7 RDW Std Deviation 42.3 Plt Count 258 D Neut % (Auto) 71 Lymph % (Auto) 20 Maries % (Auto) 8 Eos % (Auto) 0 Baso % (Auto) 0 Neut # (Auto) 13.7 H Lymph # (Auto) 3.8 Maries # (Auto) 1.6 H Eos # (Auto) 0.1 Baso # (Auto) 0.1 Immature Gran # (Auto) 0.08 H Absolute Nucleated RBC 0.00 Immature Gran % 0 Nucleated RBC % 0 VBG pH VBG pCO2 VBG pO2 VBG O2 Sat (Mainor) VBG Base Excess Sodium 139 Potassium 4.1 Chloride 106 Carbon Dioxide 23.6 Anion Gap 9 BUN 6 L Creatinine 0.8 Estim Creat Clear Calc 94.0 eGFR > 60 BUN/Creatinine Ratio 8 L Glucose 104 Calculated Osmolality 275 Lactic Acid 2.3 H Calcium 9.0 Corrected Calcium 9.5 Phosphorus 2.5 Magnesium 1.8 Total Bilirubin 0.8 AST 22 ALT 10 Alkaline Phosphatase 57 D C-Reactive Prot, Quant Total Protein 6.0 Albumin 3.4 D Globulin 2.6 Albumin/Globulin Ratio 1.3 Procalcitonin Ur Collection Type Urine Color Urine Clarity Urine pH Ur Specific [place] Urine Protein Urine Glucose (UA) Urine Ketones Urine Blood Urine Nitrite Urine Bilirubin Urine Urobilinogen (Auto) Ur Leukocyte Esterase Urine RBC Urine WBC Ur Squamous Epith Cells Urine Bacteria Ur Culture Indicated? Urine Opiates Screen Urine Fentanyl Screen Ur Barbiturates Screen U Amphetamin/Meth Scrn U Benzodiazepines Scrn U Cocaine Metab Screen U Marijuana (THC) Screen Ethyl Alcohol ABG Interpretation ABG results: 05/27/25 16:00 VBG pH 7.50 VBG pCO2 26 L VBG pO2 102 H VBG Base Excess -2 Quality Measures Quality Measures VTE prophylaxis Advance care planning discussed with:: patient and child Assessment & Plan Assessment Current Active Medications: Generic Name Dose Route Start Last Admin Trade Name Freq PRN Reason Stop Dose Admin Diazepam 5 mg 05/27/25 20:10 Diazepam Inj 5 Mg/Ml Vial 2 Ml IVP 06/01/25 20:09 Q2HR PRN CIWA SCORE 14-19 Diazepam 20 mg 05/27/25 20:17 Diazepam Inj 5 Mg/Ml Vial 2 Ml IVP 06/01/25 20:09 Q2HR PRN CIWA SCORE 20-25 Diazepam 2.5 mg 05/27/25 20:17 Diazepam Inj 5 Mg/Ml Vial 2 Ml IVP 06/01/25 20:09 Q2HR PRN CIWA SCORE 12-13 Folic Acid 1 mg 05/28/25 09:00 Folic Acid 1 Mg Tablet PO 06/27/25 08:59 QDAY BENNETT Magnesium Sulfate 4 gm in 50 mls @ 12.5 mls/hr 05/28/25 07:42 Magnesium Sulfate Ivpb IV 05/28/25 11:41 X1 ONE Lorazepam 1 mg 05/27/25 20:10 Lorazepam 0.5 Mg Tablet PO 06/01/25 20:09 Q4HR PRN CIWA SCORE 7-11 Ondansetron HCl 4 mg 05/27/25 21:47 Ondansetron Inj 2 Mg/Ml Inj 2 Ml IVP 06/26/25 21:46 Q6HR PRN NAUSEA OR VOMITING Protocol Pantoprazole Sodium 40 mg 05/27/25 20:40 05/27/25 21:03 Pantoprazole Inj 40 Mg Vial IVP 06/26/25 20:39 40 mg QDAY BENNETT Administration Thiamine HCl 100 mg 05/28/25 09:00 Thiamine Inj 100 Mg/Ml Vial 2 Ml IVP 06/27/25 08:59 QDAY BENNETT Plan Patient is a 65-year-old male past medical significant for ulcerative colitis and rheumatoid arthritis presented to the ED on 05/27/2025 with chief complaint of fever and chills. Admitted for evaluation of fever of unknown origin. #Fever of unknown origin - resolved with abx #Leukocytosis uptrending (infectious vs reactive?) #Lactic acidosis---Resolved Presented with fever of 101, pulse 110 and WBS 16.7 and lactic acid 3.4. Sepsis protocol was triggered Patient received 2 L LR in the ED.Patient has no source of infection, no ulcers, wounds, cough, recent sick contact. low concern for leukocytosis secondary to steroids use, however patient denies steroid use. no clear etiology of infection. skin exam is benign, pt declined exam. He has no respiratory symptoms, denies LUTS, does not have symptoms of a UC flare with increased blood in stool or mucus or abdominal pain or cramping. exam is grossly unremarkable but leukocytosis is uptrending from 16 to 19 despite abx. consider reactive vs infectious. pt denies any steroid use. - Blood cx pending - Urine Cx pending - UA bland - CTAP with no appendicitis, some colitis, no abscess - ceftriaxone 1gm qday (05/27- #Alcohol use disorder Patient history of chronic alcohol use. Presented with fever, tremors generalized weakness. Last alcohol intake of 32 ounce of beer this morning. Upon evaluation CIWA was 9. ethyl levels elevated on presentation pt does not appear to be withdrawing today. - CIWA protocol - Monitor for alcohol withdrawal - Started vitamin B1 100 mg - folic acid qd - Started Zofran as needed #Rheumatoid arthritis reports going to [place] every 2 months for IV infusion - Pain management for rheumatoid arthritis - q 8week infusions in [place] #Ulcerative colitis On home medication mesalamine 2.4 gram po qd - Continue home meds Anxiety -clonazapam 1 mg qhs Hospital management: Lines: peripheral IV Diet: Regular GI prophylaxis: pantoprazole DVT prophylaxis: SCDs Disposition: Med/tele for sepsis and alcohol withdrawal management CODE STATUS: Full code Plan discussed with Dr. Le, Dr Murry, and Dr. Rah Alvarado MD PGY1 Attending Provider Attestation/Addendum I, Merary Monreal, DO, attest that I was physically present for the acuna portions of the service and evaluated the patient with the resident and I reviewed and discussed the case with the resident and agree with the resident's findings and plans of care as documented above Patient seen and evaluated this AM. Patient states he is feeling well and has no complaints. He continues to state that he is fine and needs to go to [place] for his arthritis shots. Explained to patient that he is unable to get his arthritis shots if he is having an active infection as he is immunosuppressed. Patient verbalized understanding, but is anxious to go home. Patient wanted to leave AGAINST MEDICAL ADVICE, but willing to stay for 1 more day. Will continue with rocephin due to concern for UTI. Patient persists that he is feeling fine and has no complaints. Anticipate DC within next 24h once final cultures and sensitivities are final.
[2025-05-28] MEDS: Magnesium Sulfate 4 GM Ivpb 4 GM/50 ML BAG IV (07:58)
[2025-05-28] MEDS: THIAMINE INJ 100 MG/ML VIAL 2 ML IVP (08:02)
[2025-05-28] MEDS: FOLIC ACID 1 MG TABLET PO (08:02)
[2025-05-28 08:04] LABS: Lactate (Lactic Acid) 1.2 mMol/L (0.4-2.0)
--- NOTE | 2025-05-28 08:50 | XR_ITS ---
Examination: CT abdomen and pelvis without contrast. Coronal 3-D reconstructions. Sagittal 2-D reconstructions. Date and time of exam:May 28, 2025, 0915 hours, comparison July 19, 2023 INDICATIONS: Leukocytosis, unknown source of infection CTDI: vol (mGy): 9.36 DLP: (mGycm): 549 Technique: Axial images of the abdomen have been obtained, 3 mm slice thickness Intravenous contrast material has not been administered. Low dose protocols were performed. One or more of the following dose reduction techniques were used; automated exposure control, adjustment of the mA and/or KV according to patient size, use of iterative reconstruction technique. Findings: No focal liver or splenic lesions Absent gallbladder No pancreatic or adrenal mass No renal or ureteral calculi. There is perinephric stranding Aorta normal size Normal appendix No bowel obstruction There is mild inflammatory change involving the sigmoid colon without definite diverticula Mild prostatomegaly Fat-containing inguinal hernias Urinary bladder intact Moderate osteopenia IMPRESSION: Perinephric stranding, consider urinary tract infection No CT findings of appendicitis or bowel obstruction Mild nonspecific colitis pattern involving sigmoid colon
--- NOTE | 2025-05-28 10:30 | PC.SS ---
Patient Milo Cancino is a 65 Year old male admitted for Fever. SS conducted initial assessment with patient, he was able to verify demographic information and discharge plan. Patient lives at home with his family. Patient's surrogate decision maker is his son Mike Perdomo [phone]. Patient is able to complete all ADL's independently and does not utilize any source of DME to assist with ambulation. Choice of pharmacy is [facility]. PCP is Billy Domínguez. At time of discharge patient will returb back home, son will provide transportation. Discharge plan:Home Next of kin: Son, Mike Perdomo
[2025-05-28] MEDS: cefTRIAXone/D5w 1gm IV premix 1 GM/50 ML BAG IV (11:31)
--- NOTE | 2025-05-28 11:34 | PC.NURSE ---
COORDINATE CARE WITH PHARMACIST, DELZICOL WILL IS BEING CLARIFIED WITH . PHARMACY WILL BRING MEDICATION SOON.
[2025-05-28] MEDS: MESALAMINE 400 MG CAPSULE.DR 800 MG PO (11:45)
--- NOTE | 2025-05-28 15:21 | PC.SS ---
SS follow up note; Patient is pending cultures. Patient will discharge home when medically cleared.
[2025-05-29] VITALS: BP 121/57; PULSE 65; RESP 18; TEMP 36.1; O2SAT 98
--- NOTE | 2025-05-29 01:02 | PC.NURSE ---
MT reported that pt's HR went down to 46 with trigeminy, Dr. Serrano was made aware, no new orders for patient at this time. Plan of care ongoing.
--- NOTE | 2025-05-29 01:05 | PC.NURSE ---
MT called to report that pt's HR went down to 43 with bigeminy, Dr. Jung was made aware, no new orders at this time.
[2025-05-29 03:45] VITALS: PULSE 55
[2025-05-29 04:00] VITALS: BP 108/59; PULSE 63; RESP 17; TEMP 36.2; O2SAT 97
[2025-05-29 05:39] LABS: Basophils # (Auto) 0.0 Thou/mm3 (0.0-0.2); Basophils % (Auto) 0 % (0-2.5); Eosinophils # (Auto) 0.1 Thou/mm3 (0.0-0.5); Eosinophils % (Auto) 2 % (0-10); Hematocrit 38.1 % (41.0-53.0); Hemoglobin 12.3 g/dL (13.5-16.0); Immature Granulocytes Auto 0.03 Thou/mm3 (0.00-0.00); Lymphocytes # (Auto) 3.6 Thou/mm3 (1.0-4.8); Lymphocytes % (Auto) 38 % (10-50); Mean Corpuscular HGB Conc 32.3 g/dl (31.0-37.0); Mean Corpuscular Hemoglobin 26.9 pg (25.0-35.0); Mean Corpuscular Volume 83 fL (80-100); Monocytes # (Auto) 0.9 Thou/mm3 (0.0-0.8); Monocytes % (Auto) 9 % (0-12); Neutrophils # (Auto) 4.8 Thou/mm3 (1.8-7.7); Neutrophils % (Auto) 51 % (37-80); Nucleated Red Blood Cell # 0.00 Thou/mm3 (0.00-0.00); Nucleated Red Blood Cell % 0 /100 WBC (0); Platelet Count 250 Thou/mm3 (140-440); RDW Standard Deviation 43.3 fL (35.1-43.9); Red Blood Count 4.57 Miln/mm3 (4.50-5.90); White Blood Count 9.5 Thou/mm3 (3.8-10.6)
[2025-05-29] MEDS: MESALAMINE 400 MG CAPSULE.DR 800 MG PO (05:55)
[2025-05-29 05:57] LABS: Alanine Aminotransferase 11 U/L (10-49); Albumin, Serum 3.8 gm/dL (3.4-4.8); Albumin/Globulin Ratio 1.3 (1.2-2.2); Alkaline Phosphatase 57 U/L (46-116); Anion Gap 8 (7-16); Aspartate Amino Transferase 23 U/L (0-34); BUN/Creatinine Ratio 7 Ratio (12-20); Bilirubin,Total 0.4 mg/dL (0.3-1.2); Blood Urea Nitrogen 6 mg/dL (9-23); Calcium 9.3 mg/dL (8.3-10.6); Calcium (Corrected) 9.5 mg/dL (8.5-10.1); Carbon Dioxide 26.6 mMol/L (20.0-31.0); Chloride 106 mMol/L (98-107); Creatinine (Component) 0.9 mg/dL (0.6-1.3); Estimated Creatinine Clearance 83.5 mL/min (>60); Globulin 3.0 gm/dL (2.3-3.5); Glucose 111 mg/dL (74-106); Magnesium 2.2 mg/dL (1.6-2.6); Osmolality,Calculated 279 (275-295); Phosphorous 3.9 mg/dL (2.4-5.1); Potassium 4.7 mMol/L (3.4-5.1); Sodium 141 mMol/L (136-145); Total Protein 6.8 gm/dL (5.7-8.2); eGFR > 60 See Note
--- NOTE | 2025-05-29 07:31 | PC.NURSE ---
Patient's home medication Veronica found at bedside, this RN removed and delivered to Pharmacy.
[2025-05-29 07:45] VITALS: BP 147/73; PULSE 54; RESP 16; TEMP 36.1; O2SAT 97
[2025-05-29 08:00] VITALS: PULSE 57
[2025-05-29] MEDS: THIAMINE INJ 100 MG/ML VIAL 2 ML IVP (08:59)
[2025-05-29] MEDS: cefTRIAXone/D5w 1gm IV premix 1 GM/50 ML BAG IV (08:59)
--- NOTE | 2025-05-29 08:59 | PC.SS ---
SS follow up note; Patient is pending Cultures, on IV ABX. Patient will discharge home when medically cleared.
[2025-05-29] MEDS: FOLIC ACID 1 MG TABLET PO (09:00)
--- NOTE | 2025-05-29 11:18 | ESDS_ITS ---
<Statement entered by Merary Monreal DO - 05/29/25 16:03> I, Merary Monreal DO, attest that I was physically present for the acuna portions of the service and evaluated the patient with the resident and I reviewed and discussed the case with the resident and agree with the resident's findings and plans of care as documented above Planned Discharge Date 05/29/25 DS: Providers Provider Date of admission: 05/27/25 20:17 Primary care physician: Billy Domínguez PA-C Admitting Provider: Galo Carter MD Attending Provider on Admission: Merary Monreal DO Attending Provider on DC: aJmes Yi MD Discharging Provider: James Yi MD DS: Diagnosis Problem List Completed Was Problem List Reviewed/Reconciled?: Yes Hospital Course Hospital Course Hospital course: Summary: Patient is a 65-year-old M with a past medical history of ulcerative colitis and rheumatoid arthritis who was admitted on 05/27/25 with a chief complaint of fever and chills and was eventually admitted for fever thought to be 2/2 alcohol withdrawal. Patient has been afebrile after 48 hours, blood culture negative after 24 hours who was discharge on 5 additional days of antibiotics given history of RA and UC. ER: In the ED, patient was tachycardic, slightly tachypneic and febrile. Lab significant for leukocytosis and lactic acidosis of 3.4 and patient was found to have an alcohol level of 101.3. Chest imaging did not show any pulmonary edema or pneumonia. Patient was given Tylenol, ceftriaxone, and infused with 2 L LR before being admitted for fever thought to be 2/2 alcohol withdrawal. Hospital: During patient's admission, he was put on CIWA protocol and given fluids, vitamin B1, folate, and Zofran as needed while being monitored for alcohol withdrawal symptoms. Work-up for patient's fever with lactic acidosis included urine Cx, blood Cx, and CTAP (showed colitis but no appendicitis or abscess) and he was started on IV ceftriaxone 1 gm qD on 05/27. By 05/28, patient's lactic acidosis and fever had resolved and by 05/29 his leukocytosis had downtrended with patient reporting feeling well and demanding to go home, at which point he was deemed clinically stable enough to be discharged. Patient is safe to discharge to home. Further discharge instructions below. Instructions: -Continue Cephalexin for 5 additional days -continue all medication as prescribed -Please follow up with your primary care provider within one week of discharge -If your symptoms worsen,please seek immediate medical attention and return to your nearest emergency room -If you do not have a primary care provider, you may follow up at the [facility] at [address] [place] [address] [address], [place] [address], #Fever of unknown origin #Alcohol withdrawal disorder # Chronic Alcohol use disorder #Leukocytosis #Lactic acidosis #Rheumatoid arthritis #Ulcerative colitis #Anxiety Status at Discharge Cognitive/Behavioral Status at Discharge: stable Functional Status at Discharge: independent ambulation Overall Status at Discharge: patient is back to baseline Total Time Spent Providing and/or Coordinating Discharge Services: over 30 minutes of care and coordination Case discussed w/ attending Dr. Monreal and senior resident, Dr. Dodson. James Yi Do PGY-1 - The patient's plan was discussed with attending Dr. Rah Dodson MD PGY2 Internal Medicine Time Spent with Patient Time attestation: Total time spent providing and/or coordinating discharge servicesL Time spent: Greater than 30 minutes Exam Vital Signs Temp Pulse Resp BP Pulse Ox O2 Del Method 96.9 F 57 L 16 147/73 H 97 Room Air 05/29/25 07:45 05/29/25 08:00 05/29/25 07:45 05/29/25 07:45 05/29/25 07:45 05/29/25 07:45 Narrative Exam General: Alert, no acute distress. Conversational and non-toxic appearing. Skin: Warm, dry, intact. No rash or ecchymoses. Head: Normocephalic, atraumatic. Eye: Normal conjunctiva, PERRL. Throat: Oral mucosa moist. No obvious lesions in oropharynx. Cardiovascular: Regular rate and rhythm, no murmur, +S1/S2. Respiratory: Lungs are clear to auscultation, respirations unlabored, no crackles, no wheezing. Gastrointestinal: Soft, nontender, non-distended. No guarding or rebound tenderness. Extremities: No edema, no cyanosis, no clubbing. Neuro: Alert and oriented x3.No focal deficits observed. Conversant, moving all extremities. No overt cerebellar signs/incoordination. Psychiatric: Cooperative, appropriate affect Discharge Plan Plan Patient Disposition: HOME (Self Care) Patient condition on transfer: Stable Care Plan Goals: -Contin?e con cefalexina isha 5 d?as adicionales. -Contin?e con todos los medicamentos seg?n lo prescrito. -Consulte con [place] [facility]ico de cabecera dentro de [place] semana despu?s del arpit. -Si ilya s?ntomas empeoran, busque atenci?n m?dica inmediata y acuda a la germán de urgencias m?s cercana. -Si no cuenta con un m?dico de cabecera, puede consultar con [place] [facility] en [facility] en [address], [place] [address], tel?fono . -Continue Cephalexin for 5 additional days -continue all medication as prescribed -Please follow up with your primary care provider within one week of discharge -If your symptoms worsen,please seek immediate medical attention and return to your nearest emergency room -If you do not have a primary care provider, you may follow up at the [facility] at [address], [place] [address], Prescriptions/Referrals Prescriptions/Med Rec: New cephalexin 500 mg capsule 500 mg PO BID 5 Days Qty: 10 0RF Continued clonazepam 1 mg tablet 1 mg PO HS Patient Comments: TAKE 1 TABLET BY MOUTH EVERY DAY clotrimazole 1 % cream 1 applic TOPICAL BID Patient Comments: APPLY TO AFFECTED AREA TWICE A DAY FOR 28 DAYS docusate sodium [Colace] 100 mg capsule 100 mg PO BID Qty: 30 0RF mesalamine 1.2 gram tablet,delayed release (DR/EC) 2.4 g PO DAILY Patient Comments: TOME DOS TABLETAS POR V A ORAL CON LAS COMIDAS Referrals: Billy Domínguez PA-C [Primary Care Provider] Patient/Caregiver Discharge Instructions Education Materials: Alcohol Addiction Print Language: Estonian Stand Alone Forms: [employer] Award Info., Patient Portal Info Letter Discharge Order Discharge Orders: Discharge (Routine); Ordered 05/29/25 Ordered By: Keara Dodson Quality Discharge Quality Measures VTE prophylaxis and sepsis
[2025-05-29 11:25] VITALS: BP 139/73; PULSE 60; RESP 16; TEMP 36.3; O2SAT 98
[2025-05-29 11:50] LABS: Cocci Serology, IgM Negative (Negative)
[2025-05-30 10:27] LABS: Cocci Serology, IgG Negative (Negative)
== END 2025-05-29 11:40 | disposition home or self-care (01) | DRG 872 ==
LOC: SERX 17:25 → SERHOLD 20:18 → S3NX 21:43
PROVIDERS: Nurse Practitioner Family; Admitting Provider Student in an Organized Health Care Education/Training Program; Emergency Provider Family Medicine; PCP Physician Assistant; Visit Provider Internal Medicine
DX: A41.9 Sepsis, unspecified organism (principal); F10.139 Alcohol abuse with withdrawal, unspecified; K51.90 Ulcerative colitis, unspecified, without complications; E87.20 Acidosis, unspecified; F41.9 Anxiety disorder, unspecified; Y90.5 Blood alcohol level of 100-119 mg/100 ml; Z90.49 Acquired absence of other specified parts of digestive tract; M06.9 Rheumatoid arthritis, unspecified
CPT/HCPCS: 36415; 71046; 74176; 80053; 80307; 80320; 81001; 82803; 83605; 83735; 84100; 84145; 85025; 86140; 86331; 86635; 87040; 87086; 87400; 87502; 87811; 93225; 96361; 96365; 96375; 99284; J0696; J2470; J3411; J3475; J7120; A9270; G0480